=== PATIENT | female | born 1930 | race Caucasian/White ===

== ENCOUNTER 2020-11-20 16:16 | Inpatient (IN) | payer MEDICARE, OTHER ==
[~2020-11-20] VITALS: Ht 157.5 cm; Wt 90.7 kg
[2020-11-20] MEDS ORDERED: IV NORMAL SALINE 1000 ML BAG IV ONE (16:30)
[2020-11-20] MEDS ORDERED: ENAL5TAB21 PO (16:40)
[2020-11-20] MEDS ORDERED: METO-357 PO (16:40)
[2020-11-20] MEDS ORDERED: DIPH-1062 PO (16:40)
[2020-11-20] MEDS ORDERED: OXYB5TAB16 PO (16:40)
[2020-11-20] MEDS ORDERED: AMLO2.5T4 PO (16:40)
[2020-11-20] MEDS ORDERED: CHOL2000 PO (16:40)
[2020-11-20] MEDS ORDERED: CHLO473M3 MM (16:40)
[2020-11-20] MEDS ORDERED: ARIP2TAB3 PO (16:40)
[2020-11-20] MEDS ORDERED: SITA100T PO (16:40)
[2020-11-20] MEDS ORDERED: DOCU240C26 PO (16:40)
[2020-11-20] MEDS ORDERED: ASPI81TA31 PO (16:40)
[2020-11-20] MEDS ORDERED: AZIL1TAB2 PO (16:40)
[2020-11-20] MEDS ORDERED: LINA145C PO (16:40)
[2020-11-20] MEDS ORDERED: METF-886 PO (16:40)
[2020-11-20] MEDS ORDERED: NITR0.4T48 SL (16:40)
[2020-11-20] MEDS ORDERED: ZOLP10TA2 PO (16:40)
[2020-11-20] MEDS ORDERED: ISOS60TA72 PO (16:40)
[2020-11-20] MEDS ORDERED: AZIL40TA PO (16:40)
[2020-11-20] MEDS ORDERED: OLOP2.5D12 (16:40)
[2020-11-20] MEDS ORDERED: ICOS1CAP2 (16:40)
[2020-11-20] MEDS ORDERED: FERR325T28 PO (16:40)
[2020-11-20] MEDS ORDERED: ATOR10TA PO (16:40)
[2020-11-20] MEDS ORDERED: DICL50TA9 PO (16:40)
[2020-11-20] MEDS ORDERED: FAMO40TA7 PO (16:40)
[2020-11-20 16:59] LABS: CARBON DIOXIDE 18 mmol/L (21-32); CHLORIDE 111 mmol/L (98-107); CREATININE 1.4 mg/dL (0.6-1.3); GLUCOSE 148 mg/dL (74-106); HEMATOCRIT 28.4 % (31.2-41.9); MEAN CORPUSCULAR HEMOGLOBIN 30.6 uug (24.7-32.8); MEAN CORPUSCULAR VOLUME 91.4 fL (75.5-95.3); PLATELET COUNT (AUTO) 115 K/uL (179-408); POTASSIUM 3.5 mmol/L (3.5-5.1); UREA NITROGEN, BLOOD 30 mg/dL (7-18)
[2020-11-20 17:04] LABS: ALANINE AMINOTRANSFERASE 17 U/L (14-59); ALKALINE PHOSPHATASE 119 U/L (50-136); ASPARTATE AMINOTRANSFERASE 14 U/L (15-37); BILIRUBIN,DIRECT < 0.1 mg/dL (0.0-0.2); BILIRUBIN,TOTAL 0.3 mg/dL (0.2-1.0); TOTAL PROTEIN, SERUM 6.2 g/dL (6.4-8.2)
[2020-11-20] MEDS ORDERED: ACETAMINOPHEN 325 MG TABLET PO PRN (19:30)
[2020-11-20] MEDS ORDERED: ONDANSETRON 4 MG/2 ML VIAL IV PRN (19:30)
[2020-11-20] MEDS ORDERED: HYDROCODONE/APAP 5-325MG TABLET PO PRN (19:30)
[2020-11-20] MEDS ORDERED: Medication Not On Formulary EA (Zolpidem Tartrate (Ambien) 10 MG) PO PRN (19:30)
[2020-11-20] MEDS ORDERED: ZOLPIDEM 5 MG TABLET PO PRN (20:45)
[2020-11-20] MEDS ORDERED: DOCUSATE SODIUM 250 MG CAPSULE PO SCH (21:00)
[2020-11-20] MEDS: DOCUSATE SODIUM 100 MG CAPSULE PO SCH (21:02)
[2020-11-20] MEDS: ATORVASTATIN 10 MG TABLET PO SCH (21:02)
[2020-11-20 21:54] VITALS: BP 98/41
[2020-11-21 00:09] VITALS: BP 94/44
[2020-11-21] MEDS: ZOLPIDEM 5 MG TABLET PO PRN (00:27)
[2020-11-21 04:55] VITALS: BP 96/40
[2020-11-21] MEDS: PANTOPRAZOLE SODIUM 40 MG TABLET.DR PO SCH (06:09)
[2020-11-21 06:33] LABS: HEMATOCRIT 25.6 % (31.2-41.9); MEAN CORPUSCULAR HEMOGLOBIN 30.7 uug (24.7-32.8); MEAN CORPUSCULAR VOLUME 92.2 fL (75.5-95.3); PLATELET COUNT (AUTO) 107 K/uL (179-408)
[2020-11-21 07:35] LABS: BILIRUBIN,TOTAL 0.3 mg/dL (0.2-1.0); CREATININE 1.1 mg/dL (0.6-1.3); MAGNESIUM 1.5 mg/dL (1.8-2.4); PHOSPHOROUS 2.6 mg/dL (2.5-4.9); POTASSIUM 3.3 mmol/L (3.5-5.1); TOTAL PROTEIN, SERUM 5.4 g/dL (6.4-8.2)
[2020-11-21 08:20] LABS: THYROID STIMULATING HORMONE 2.162 mIU/mL (0.358-3.740)
[2020-11-21] MEDS ORDERED: AMLODIPINE 2.5 MG TABLET PO SCH (09:00)
[2020-11-21] MEDS ORDERED: Medication Not On Formulary EA (Linaclotide (Linzess) 145 MCG) PO SCH (09:00)
[2020-11-21] MEDS: ASPIRIN 81 MG TAB.CHEW PO SCH (09:06)
[2020-11-21] MEDS: OXYBUTYNIN CHLORIDE 5 MG TABLET PO SCH (09:07)
[2020-11-21] MEDS: ISOSORBIDE MONONITRATE 60 MG TAB.SR.24H PO SCH (09:16)
[2020-11-21] MEDS: METOPROLOL SUCCINATE XL 50 MG TAB.SR.24H PO SCH (09:16)
[2020-11-21] MEDS: CHOLECALCIFEROL 1,000 UNIT TABLET PO SCH (09:17)
[2020-11-21] MEDS: ARIPIPRAZOLE 2 MG TABLET PO SCH (09:19)
[2020-11-21] MEDS ORDERED: POTASSIUM CHLORIDE 20 MEQ TAB.PRT.SR PO SCH (09:45)
[2020-11-21] MEDS: MAGNESIUM SULFATE/D5W 100 ML IV SCH ×2 (10:41→11:59)
[2020-11-21 11:01] LABS: IRON, SERUM 59 ug/dL (50-175)
[2020-11-21 11:18] VITALS: BP 82/40
[2020-11-21] MEDS: CYANOCOBALAMIN 1000 MCG/ML VIAL IM SCH (11:59)
[2020-11-21] MEDS: METFORMIN XR 500 MG TAB.SR.24H PO SCH ×2 (13:17→21:34)
[2020-11-21 16:07] VITALS: BP 119/82
[2020-11-21] MEDS ORDERED: IV D5 1/2 NS 1000 ML 1,000 ML IV PRN (18:15)
[2020-11-21 20:00] VITALS: BP 140/71
[2020-11-21] MEDS: DOCUSATE SODIUM 100 MG CAPSULE PO SCH (21:33)
[2020-11-21] MEDS: ATORVASTATIN 10 MG TABLET PO SCH (21:33)
[2020-11-22] VITALS: BP 162/77
[2020-11-22 04:00] VITALS: BP 156/55
[2020-11-22 04:36] LABS: *BILIRUBIN,URIN NEGATIVE (NEGATIVE); *BLOOD, URINE 3+ (NEGATIVE); *CLARITY,URINE CLEAR (CLEAR); *KETONES,URINE NEGATIVE (NEGATIVE); *UROBILINOGEN,URINE 0.2 E.U./dl (NORMAL); LEUKOCYTE ESTERASE ,URINE TRACE (NEGATIVE); NITRITE, URINE NEGATIVE (NEGATIVE); UGLUCOSE NEGATIVE (NEGATIVE)
[2020-11-22 04:41] LABS: *COLOR,URINE STRAW (YELLOW)
[2020-11-22 04:43] LABS: BACTERIA,URINE MODERATE /HPF (NONE SEEN); SQUAMOUS EPITHELIAL CELL,UR FEW /HPF (NONE SEEN)
[2020-11-22 05:47] VITALS: BP 125/65
[2020-11-22] MEDS: PANTOPRAZOLE SODIUM 40 MG TABLET.DR PO SCH (06:22)
[2020-11-22] MEDS: CYANOCOBALAMIN 1000 MCG/ML VIAL IM SCH (08:46)
[2020-11-22] MEDS: ASPIRIN 81 MG TAB.CHEW PO SCH (08:47)
[2020-11-22] MEDS: ARIPIPRAZOLE 2 MG TABLET PO SCH (08:47)
[2020-11-22] MEDS: OXYBUTYNIN CHLORIDE 5 MG TABLET PO SCH ×2 (08:49→09:00)
[2020-11-22] MEDS: METFORMIN XR 500 MG TAB.SR.24H PO SCH ×2 (08:50→20:08)
[2020-11-22] MEDS: ISOSORBIDE MONONITRATE 60 MG TAB.SR.24H PO SCH (08:50)
[2020-11-22] MEDS: METOPROLOL SUCCINATE XL 50 MG TAB.SR.24H PO SCH (08:50)
[2020-11-22] MEDS: CHOLECALCIFEROL 1,000 UNIT TABLET PO SCH (08:51)
[2020-11-22 08:57] LABS: *OCCULT BLOOD STOOL NEGATIVE (NEGATIVE)
[2020-11-22] MEDS ORDERED: CEFTRIAXONE 1 G in IV DEXTROSE 5% 50 ML IV SCH (11:30)
[2020-11-22 11:35] VITALS: BP 111/48
[2020-11-22] MEDS ORDERED: CEFTRIAXONE 2 G in IV DEXTROSE 5% 100 ML IV SCH (12:00)
[2020-11-22] MEDS: CEphaleXIN 250 MG CAPSULE PO SCH ×2 (14:39→21:08)
[2020-11-22] MEDS: ACIDOPHILUS/BULGARICUS CHEW TAB PO SCH ×2 (14:39→20:08)
[2020-11-22 15:51] VITALS: BP 110/55
[2020-11-22 20:00] VITALS: BP 125/51
[2020-11-22] MEDS: ATORVASTATIN 10 MG TABLET PO SCH (20:08)
[2020-11-22] MEDS: DOCUSATE SODIUM 100 MG CAPSULE PO SCH (20:08)
[2020-11-22] MEDS: ZOLPIDEM 5 MG TABLET PO PRN (22:37)
[2020-11-23 04:00] VITALS: BP 104/68
[2020-11-23] MEDS: CEphaleXIN 250 MG CAPSULE PO SCH ×2 (06:34→13:40)
[2020-11-23] MEDS: PANTOPRAZOLE SODIUM 40 MG TABLET.DR PO SCH (06:34)
[2020-11-23] MEDS: CHOLECALCIFEROL 1,000 UNIT TABLET PO SCH (09:15)
[2020-11-23] MEDS: ASPIRIN 81 MG TAB.CHEW PO SCH (09:15)
[2020-11-23] MEDS: OXYBUTYNIN CHLORIDE 5 MG TABLET PO SCH (09:15)
[2020-11-23] MEDS: ACIDOPHILUS/BULGARICUS CHEW TAB PO SCH (09:17)
[2020-11-23] MEDS: CYANOCOBALAMIN 1000 MCG/ML VIAL IM SCH (09:17)
[2020-11-23] MEDS: ISOSORBIDE MONONITRATE 60 MG TAB.SR.24H PO SCH (09:21)
[2020-11-23] MEDS: METOPROLOL SUCCINATE XL 50 MG TAB.SR.24H PO SCH (09:21)
[2020-11-23] MEDS: METFORMIN XR 500 MG TAB.SR.24H PO SCH (09:22)
[2020-11-23] MEDS: ARIPIPRAZOLE 2 MG TABLET PO SCH (09:23)
[2020-11-23] MEDS ORDERED: HYDR-4209 PO (10:30)
[2020-11-23] MEDS ORDERED: ACET325T53 PO (10:30)
[2020-11-23] MEDS ORDERED: METF-494 PO (10:30)
[2020-11-23] MEDS ORDERED: ZOLP5TAB8 PO ×2 (10:30)
[2020-11-23] MEDS ORDERED: METO-357 PO (10:30)
[2020-11-23] MEDS ORDERED: DOCU100C36 PO (10:30)
[2020-11-23] MEDS ORDERED: FERR325T24 PO (10:30)
[2020-11-23] MEDS ORDERED: CEPH250C PO (10:30)
[2020-11-23] MEDS ORDERED: ACID1TAB4 PO (10:30)
[2020-11-23] MEDS ORDERED: CYAN10006 IM (10:30)
[2020-11-23] MEDS ORDERED: PANT40TA2 PO (10:30)
[2020-11-23] MEDS ORDERED: AMLODIPINE 2.5 MG TABLET PO ONE (11:08)
[2020-11-23 12:02] VITALS: BP 103/51
== END 2020-11-23 14:30 | DRG 73 ==
LOC: ER 16:18 → TELE3 20:16 → MEDSURG3 11-22 10:53
PROVIDERS: ADMIT Internal Medicine; ATTEND Internal Medicine
DX: G90.8 Other disorders of autonomic nervous system (principal); N17.0 Acute kidney failure with tubular necrosis; I50.31 Acute diastolic (congestive) heart failure; D68.59 Other primary thrombophilia; E44.0 Moderate protein-calorie malnutrition; E87.1 Hypo-osmolality and hyponatremia; Z74.09 Other reduced mobility; Z68.36 Body mass index [BMI] 36.0-36.9, adult; E78.1 Pure hyperglyceridemia; E53.8 Deficiency of other specified B group vitamins; I11.0 Hypertensive heart disease with heart failure; D69.6 Thrombocytopenia, unspecified; G31.9 Degenerative disease of nervous system, unspecified; I25.10 Atherosclerotic heart disease of native coronary artery without angina pectoris; E78.5 Hyperlipidemia, unspecified; E86.0 Dehydration; S00.03XA Contusion of scalp, initial encounter; W18.30XA Fall on same level, unspecified, initial encounter; Y92.89 Other specified places as the place of occurrence of the external cause; E66.9 Obesity, unspecified; S20.219A Contusion of unspecified front wall of thorax, initial encounter; Z79.84 Long term (current) use of oral hypoglycemic drugs; Z95.0 Presence of cardiac pacemaker; Z20.822 Contact with and (suspected) exposure to COVID-19; M51.36 Other intervertebral disc degeneration, lumbar region; G89.29 Other chronic pain; D64.9 Anemia, unspecified; E11.9 Type 2 diabetes mellitus without complications; I49.9 Cardiac arrhythmia, unspecified; K21.9 Gastro-esophageal reflux disease without esophagitis; M51.34 Other intervertebral disc degeneration, thoracic region; M47.816 Spondylosis without myelopathy or radiculopathy, lumbar region; M41.9 Scoliosis, unspecified; I70.0 Atherosclerosis of aorta; Z90.710 Acquired absence of both cervix and uterus; E87.8 Other disorders of electrolyte and fluid balance, not elsewhere classified
CPT/HCPCS: 36415; 70030-TC; 70450; 71045; 72072; 72110; 72125; 83550; 83735; 84100; 84443; 85025; 85730; 87086; 93005; 93307; 93880; A4663; G0378; J0696; J3420; J3475; J3490; J7030; J7050; J7060; U0003

== ENCOUNTER 2021-02-19 16:02 | Inpatient (IN) | payer MEDICARE, OTHER ==
[~2021-02-19] VITALS: Ht 149.9 cm; Wt 68.5 kg
[~2021-02-19 16:02] MED LIST: ACET325T53 PO; ACID1TAB4 PO; AMLO2.5T4 PO; ARIP2TAB3 PO; ASPI81TA31 PO; ATOR10TA PO; CEPH250C PO; CHOL2000 PO; CYAN10006 IM; DOCU100C36 PO; FERR325T24 PO; HYDR-4209 PO; ISOS60TA72 PO; LINA145C PO; METF-494 PO; METO-357 PO; NITR0.4T48 SL; OXYB5TAB16 PO; PANT40TA2 PO; ZOLP5TAB8 PO
[2021-02-19] MEDS ORDERED: IV NORMAL SALINE 500 ML BAG IV ONE (16:30)
[2021-02-19 16:49] LABS: HEMATOCRIT 33.4 % (31.2-41.9); MEAN CORPUSCULAR HEMOGLOBIN 30.1 uug (24.7-32.8); MEAN CORPUSCULAR VOLUME 90.2 fL (75.5-95.3); PLATELET COUNT (AUTO) 185 K/uL (179-408)
[2021-02-19 16:54] LABS: CARBON DIOXIDE 20 mmol/L (21-32); CHLORIDE 102 mmol/L (98-107); CREATININE 1.8 mg/dL (0.6-1.3); GLUCOSE 171 mg/dL (74-106); POTASSIUM 4.1 mmol/L (3.5-5.1); UREA NITROGEN, BLOOD 38 mg/dL (7-18)
[2021-02-19] MEDS ORDERED: METF-440 PO (16:59)
[2021-02-19] MEDS ORDERED: DIPH25CA83 PO (16:59)
[2021-02-19] MEDS ORDERED: DOCU100C36 PO (16:59)
[2021-02-19] MEDS ORDERED: TOBR5DRO2 EACHEYE (16:59)
[2021-02-19] MEDS ORDERED: CHLO473M3 PO (16:59)
[2021-02-19] MEDS ORDERED: FAMO40TA7 PO (16:59)
[2021-02-19] MEDS ORDERED: OLOP2.5D12 EACHEYE (16:59)
[2021-02-19] MEDS ORDERED: ENAL5TAB21 PO (16:59)
[2021-02-19] MEDS ORDERED: ICOS1CAP PO (16:59)
[2021-02-19] MEDS ORDERED: AZIL1TAB2 PO (16:59)
[2021-02-19] MEDS ORDERED: METF-442 PO (16:59)
[2021-02-19] MEDS ORDERED: SITA100T PO (16:59)
[2021-02-19] MEDS ORDERED: METO-357 PO (16:59)
[2021-02-19] MEDS ORDERED: AZIL40TA PO (16:59)
[2021-02-19] MEDS ORDERED: DICLOFENAC GEL TP (16:59)
[2021-02-19 17:00] LABS: ALANINE AMINOTRANSFERASE 13 U/L (14-59); ALKALINE PHOSPHATASE 112 U/L (50-136); ASPARTATE AMINOTRANSFERASE 9 U/L (15-37); BILIRUBIN,DIRECT 0.1 mg/dL (0.0-0.2); BILIRUBIN,TOTAL 0.5 mg/dL (0.2-1.0); LIPASE 70 U/L (73-393); TOTAL PROTEIN, SERUM 6.9 g/dL (6.4-8.2)
[2021-02-19 17:15] LABS: *BILIRUBIN,URIN NEGATIVE (NEGATIVE); *BLOOD, URINE 3+ (NEGATIVE); *COLOR,URINE YELLOW (YELLOW); *KETONES,URINE TRACE (NEGATIVE); *UROBILINOGEN,URINE 0.2 E.U./dl (NORMAL); LEUKOCYTE ESTERASE ,URINE NEGATIVE (NEGATIVE); NITRITE, URINE NEGATIVE (NEGATIVE); UGLUCOSE NEGATIVE (NEGATIVE)
[2021-02-19 17:21] LABS: *CLARITY,URINE SLIGHTLY HAZY (CLEAR); BACTERIA,URINE FEW /HPF (NONE SEEN); RBC,URINE 20-50 /HPF (0-3); SQUAMOUS EPITHELIAL CELL,UR FEW /HPF (NONE SEEN)
[2021-02-19 22:00] VITALS: BP 134/45
[2021-02-19] MEDS ORDERED: MAGNESIUM HYDROXIDE 30 ML LIQUID UDC PO PRN (22:00)
[2021-02-19] MEDS ORDERED: Z GUARD REMEDY PASTE 57 GM TUBE TOP PRN (22:00)
[2021-02-19] MEDS ORDERED: ZOLPIDEM 5 MG TABLET PO PRN (22:00)
[2021-02-19] MEDS ORDERED: ACETAMINOPHEN 325 MG TABLET PO PRN (22:00)
[2021-02-19] MEDS ORDERED: MORPHINE SULFATE 2 MG/1 ML DISP.SYRIN IV PRN (22:00)
[2021-02-19] MEDS ORDERED: ONDANSETRON 4 MG/2 ML VIAL IV PRN (22:00)
[2021-02-19] MEDS ORDERED: HYDROCODONE/APAP 5-325MG TABLET PO PRN (22:00)
[2021-02-19] MEDS: IV NS 1000 ML 1,000 ML IV PRN (23:10)
[2021-02-20 01:15] VITALS: BP 97/45
[2021-02-20 04:00] VITALS: BP 139/69
[2021-02-20] MEDS: PANTOPRAZOLE SODIUM 40 MG TABLET.DR PO SCH (06:19)
[2021-02-20 06:43] LABS: HEMATOCRIT 28.2 % (31.2-41.9); MEAN CORPUSCULAR HEMOGLOBIN 31.3 uug (24.7-32.8); MEAN CORPUSCULAR VOLUME 89.6 fL (75.5-95.3); PLATELET COUNT (AUTO) 146 K/uL (179-408)
[2021-02-20 07:06] LABS: CARBON DIOXIDE 22 mmol/L (21-32); CHLORIDE 107 mmol/L (98-107); CHOLESTEROL 126 mg/dL (<200); CREATININE 1.6 mg/dL (0.6-1.3); GLUCOSE 110 mg/dL (74-106); MAGNESIUM 1.7 mg/dL (1.8-2.4); PHOSPHOROUS 3.8 mg/dL (2.5-4.9); POTASSIUM 3.7 mmol/L (3.5-5.1); TRIGLYCERIDES 166 MG/DL (30-150); UREA NITROGEN, BLOOD 32 mg/dL (7-18)
[2021-02-20 07:07] LABS: HDL CHOLESTEROL 43 mg/dL (40-60)
[2021-02-20 07:10] LABS: THYROID STIMULATING HORMONE 1.187 mIU/mL (0.358-3.740)
[2021-02-20] MEDS ORDERED: MAGNESIUM SULFATE/D5W 100 ML IV SCH (09:15)
[2021-02-20 11:56] VITALS: BP 95/43
[2021-02-20] MEDS ORDERED: DOCUSATE SODIUM 100 MG CAPSULE PO SCH (12:15)
[2021-02-20] MEDS: ASPIRIN 81 MG TAB.CHEW PO SCH ×2 (13:17→20:15)
[2021-02-20] MEDS: ISOSORBIDE MONONITRATE 60 MG TAB.SR.24H PO SCH (13:18)
[2021-02-20] MEDS: ARIPIPRAZOLE 2 MG TABLET PO SCH (14:00)
[2021-02-20] MEDS: CEFTRIAXONE 1 G in IV DEXTROSE 5% 50 ML IV SCH (14:00)
[2021-02-20] MEDS ORDERED: DEXTROSE 50% 50 ML DISP.SYRIN IV PRN (14:30)
[2021-02-20 15:39] VITALS: BP 98/52
[2021-02-20] MEDS: IV NS 1000 ML 1,000 ML IV PRN (16:05)
[2021-02-20] MEDS ORDERED: INSULIN REGULAR, HUMAN 300 UNIT/3 ML VIAL SQ PRN (16:30)
[2021-02-20] MEDS: BLOOD SUGAR DIAGNOSTIC 1 EACH STRIP VI SCH ×2 (16:56→20:56)
[2021-02-20] MEDS: METOPROLOL SUCCINATE XL 50 MG TAB.SR.24H PO SCH (17:00)
[2021-02-20] MEDS ORDERED: DOCUSATE SODIUM 250 MG CAPSULE PO PRN (17:00)
[2021-02-20] MEDS: diphenhydrAMINE 25 MG CAP PO SCH (17:54)
[2021-02-20] MEDS: TOBRAMYCIN/DEXAMETH OPHT DROP 2.5 ML BOTTLE EACHEYE SCH (17:54)
[2021-02-20] MEDS: CHLORHEXIDINE GLUCONATE 15 ML MOUTHWASH MM SCH (17:55)
[2021-02-20] MEDS ORDERED: [UNRECOGNIZED DRUG - REMARK] PO SCH (18:00)
[2021-02-20 20:20] VITALS: BP 97/55
[2021-02-20] MEDS ORDERED: ATORVASTATIN 10 MG TABLET PO SCH (21:00)
[2021-02-20] MEDS: MIRALAX 17 GM POWD.PACK PO PRN (21:59)
[2021-02-21 04:25] VITALS: BP 113/68
[2021-02-21] MEDS: IV NS 1000 ML 1,000 ML IV PRN (06:02)
[2021-02-21] MEDS: PANTOPRAZOLE SODIUM 40 MG TABLET.DR PO SCH (06:25)
[2021-02-21] MEDS: BLOOD SUGAR DIAGNOSTIC 1 EACH STRIP VI SCH ×3 (06:26→16:46)
[2021-02-21 06:53] LABS: HEMATOCRIT 30.3 % (31.2-41.9); MEAN CORPUSCULAR HEMOGLOBIN 30.5 uug (24.7-32.8); MEAN CORPUSCULAR VOLUME 90.6 fL (75.5-95.3); PLATELET COUNT (AUTO) 149 K/uL (179-408)
[2021-02-21 07:28] LABS: CREATININE 1.2 mg/dL (0.6-1.3); MAGNESIUM 1.9 mg/dL (1.8-2.4); PHOSPHOROUS 3.4 mg/dL (2.5-4.9); POTASSIUM 3.6 mmol/L (3.5-5.1)
[2021-02-21] MEDS ORDERED: Medication Not On Formulary EA (Icosapent Ethyl (Vascepa) 4 GM) PO SCH (09:00)
[2021-02-21] MEDS ORDERED: CHOLECALCIFEROL 1,000 UNIT TABLET PO SCH (09:00)
[2021-02-21] MEDS ORDERED: AMLODIPINE 2.5 MG TABLET PO SCH (09:00)
[2021-02-21] MEDS ORDERED: LINAGLIPTIN 5 MG TABLET PO SCH (09:00)
[2021-02-21] MEDS ORDERED: FERROUS SULFATE 325 MG TABEC PO SCH (09:00)
[2021-02-21] MEDS ORDERED: Medication Not On Formulary EA (Linaclotide (Linzess) 145 MCG) PO SCH (09:00)
[2021-02-21] MEDS: ASPIRIN 81 MG TAB.CHEW PO SCH ×2 (09:26→18:28)
[2021-02-21] MEDS: METOPROLOL SUCCINATE XL 50 MG TAB.SR.24H PO SCH ×2 (09:28→17:00)
[2021-02-21] MEDS: CHLORHEXIDINE GLUCONATE 15 ML MOUTHWASH MM SCH ×2 (09:28→17:00)
[2021-02-21] MEDS: TOBRAMYCIN/DEXAMETH OPHT DROP 2.5 ML BOTTLE EACHEYE SCH ×2 (09:28→17:00)
[2021-02-21] MEDS: ARIPIPRAZOLE 2 MG TABLET PO SCH (09:29)
[2021-02-21] MEDS ORDERED: CEPH500C2 PO (11:22)
[2021-02-21 12:00] VITALS: BP 106/55
[2021-02-21] MEDS: ISOSORBIDE MONONITRATE 60 MG TAB.SR.24H PO SCH (12:15)
[2021-02-21] MEDS: MIRALAX 17 GM POWD.PACK PO PRN (12:18)
[2021-02-21] MEDS: CEFTRIAXONE 1 G in IV DEXTROSE 5% 50 ML IV SCH (14:38)
[2021-02-21] MEDS ORDERED: [UNRECOGNIZED DRUG - OTHER] PO SCH (15:00)
[2021-02-21] MEDS ORDERED: VASCEPA 1 GM PO SCH (15:00)
[2021-02-21] MEDS ORDERED: [UNRECOGNIZED DRUG - OTHER] PO SCH (15:00)
[2021-02-21] MEDS ORDERED: LINZESS 145 MG PO SCH (15:00)
[2021-02-21 16:00] VITALS: BP 115/61
[2021-02-21 17:00] VITALS: BP 115/61
[2021-02-21] MEDS: diphenhydrAMINE 25 MG CAP PO SCH (18:28)
== END 2021-02-21 20:15 | DRG 683 ==
LOC: ER 16:05 → TELE3 21:11 → MEDSURG3 02-20 10:42
PROVIDERS: ADMIT Student in an Organized Health Care Education/Training Program; ATTEND Student in an Organized Health Care Education/Training Program
DX: N17.0 Acute kidney failure with tubular necrosis (principal); E44.0 Moderate protein-calorie malnutrition; N13.6 Pyonephrosis; E11.9 Type 2 diabetes mellitus without complications; E78.5 Hyperlipidemia, unspecified; K21.9 Gastro-esophageal reflux disease without esophagitis; Z87.442 Personal history of urinary calculi; Z79.84 Long term (current) use of oral hypoglycemic drugs; I10 Essential (primary) hypertension; Z68.30 Body mass index [BMI] 30.0-30.9, adult; N28.1 Cyst of kidney, acquired; Z20.822 Contact with and (suspected) exposure to COVID-19
CPT/HCPCS: 36415; 70030-TC; 71045; 83690; 83735; 84100; 84443; 85025; 85730; 87086; 93005; A4663; C1758; G0378; J0696; J1815; J3475; J7030; J7040; J7060; Q0163

== ENCOUNTER 2021-07-04 23:22 | Emergency (ER) | payer MEDICARE, OTHER ==
[~2021-07-04] VITALS: Ht 139.7 cm; Wt 70.3 kg
[~2021-07-04 23:22] MED LIST changes: -ACET325T53 PO; -ACID1TAB4 PO; +AZIL1TAB2 PO; +AZIL40TA PO; -CEPH250C PO; +CEPH500C2 PO; +CHLO473M3 PO; -CYAN10006 IM; +DICLOFENAC GEL TP; +DIPH25CA83 PO; +ENAL5TAB21 PO; +FAMO40TA7 PO; -HYDR-4209 PO; +ICOS1CAP PO; +METF-440 PO; +METF-442 PO; -METF-494 PO; -NITR0.4T48 SL; +OLOP2.5D12 EACHEYE; -OXYB5TAB16 PO; -PANT40TA2 PO; +SITA100T PO; +TOBR5DRO2 EACHEYE
--- NOTE | 2021-07-04 23:45 | NUR ---
PT BIB DAUGHTER FROM HOME C/O LLQ ABD PAIN AND HIGH SBP OF 89 [employer]. PT DENIES CP/PRESSURE. NO N/V/D. AMBULATORY WITH ASSIST. PATTY AT BEDSIDE.
--- NOTE | 2021-07-05 00:05 | NUR ---
DR. HARRIS AT BEDSIDE, MSE IN PROGRESS.
[2021-07-05] MEDS ORDERED: MORPHINE SULFATE 2 MG/1 ML DISP.SYRIN IV ONE (00:30)
[2021-07-05] MEDS ORDERED: MORPHINE SULFATE 2 MG/1 ML DISP.SYRIN ONE (00:52)
[2021-07-05] MEDS ORDERED: ONDANSETRON 4 MG/2 ML VIAL IV ONE (01:15)
[2021-07-05] MEDS ORDERED: ONDANSETRON 4 MG/2 ML VIAL ONE (01:19)
[2021-07-05 01:52] LABS: HEMATOCRIT 34.7 % (31.2-41.9); MEAN CORPUSCULAR HEMOGLOBIN 30.7 uug (24.7-32.8); MEAN CORPUSCULAR VOLUME 92.4 fL (75.5-95.3); PLATELET COUNT (AUTO) 166 K/uL (179-408)
[2021-07-05 01:55] LABS: CARBON DIOXIDE 19 mmol/L (21-32); CHLORIDE 106 mmol/L (98-107); CREATININE 1.6 mg/dL (0.6-1.3); GLUCOSE 165 mg/dL (74-106); POTASSIUM 4.7 mmol/L (3.5-5.1); UREA NITROGEN, BLOOD 39 mg/dL (7-18)
--- NOTE | 2021-07-05 02:00 | NUR ---
Patient is resting comfortably in bed with eyes closed.
[2021-07-05 02:01] LABS: ALANINE AMINOTRANSFERASE 20 U/L (14-59); ALKALINE PHOSPHATASE 125 U/L (50-136); ASPARTATE AMINOTRANSFERASE 12 U/L (15-37); BILIRUBIN,DIRECT 0.1 mg/dL (0.0-0.2); BILIRUBIN,TOTAL 0.2 mg/dL (0.2-1.0); LIPASE 110 U/L (73-393)
[2021-07-05 04:30] LABS: *BILIRUBIN,URIN NEGATIVE (NEGATIVE); *BLOOD, URINE 2+ (NEGATIVE); *CLARITY,URINE CLEAR (CLEAR); *COLOR,URINE YELLOW (YELLOW); *KETONES,URINE NEGATIVE (NEGATIVE); *UROBILINOGEN,URINE 0.2 E.U./dl (NORMAL); LEUKOCYTE ESTERASE ,URINE TRACE (NEGATIVE); NITRITE, URINE NEGATIVE (NEGATIVE); UGLUCOSE NEGATIVE (NEGATIVE)
[2021-07-05 04:39] LABS: BACTERIA,URINE FEW /HPF (NONE SEEN); SQUAMOUS EPITHELIAL CELL,UR FEW /HPF (NONE SEEN)
[2021-07-05] MEDS ORDERED: IV NORMAL SALINE 500 ML IV ONE ×2 (05:15→06:00)
[2021-07-05] MEDS ORDERED: OXYB5TAB16 PO (05:25)
[2021-07-05] MEDS ORDERED: LIDO30AD10 TD (05:25)
--- NOTE | 2021-07-05 05:45 | NUR ---
CALLED [facility], [place] [facility].
[2021-07-05 07:34] LABS: CARBON DIOXIDE 19 mmol/L (21-32); CHLORIDE 107 mmol/L (98-107); CREATININE 1.6 mg/dL (0.6-1.3); GLUCOSE 138 mg/dL (74-106); POTASSIUM 4.7 mmol/L (3.5-5.1); UREA NITROGEN, BLOOD 35 mg/dL (7-18)
[2021-07-05] MEDS ORDERED: NAPR-1009 PO (08:00)
--- NOTE | 2021-07-05 09:10 | NUR ---
PT WAS D/C'd TO HOME. D/C INSTRUCTIONS GIVEN TO THE PT AND TO PT's URVASHI.
[2021-07-05 09:11] VITALS: BP 140/84
== END 2021-07-05 09:12 | disposition home or self-care (01) ==
LOC: ER 23:29
DX: N20.0 Calculus of kidney (principal); N17.9 Acute kidney failure, unspecified; N13.30 Unspecified hydronephrosis; I25.10 Atherosclerotic heart disease of native coronary artery without angina pectoris; K21.9 Gastro-esophageal reflux disease without esophagitis; E11.9 Type 2 diabetes mellitus without complications; Z95.0 Presence of cardiac pacemaker; Z79.82 Long term (current) use of aspirin; Z79.899 Other long term (current) drug therapy; Z20.822 Contact with and (suspected) exposure to COVID-19
CPT/HCPCS: 36415; 74176; 80048 ×2; 80076; 81001; 83605; 83690; 85025; 87086; 87426; 93005; 96374; 96375; 99285; J2270; J2405; A4663; J7040